=== PATIENT | female | born 2000 | race American Indian/Alaskan Native ===

== ENCOUNTER 2020-10-01 12:46 | Emergency (ER) | payer OTHER ==
[2020-10-01 12:57] VITALS: BP 117/80
--- NOTE | 2020-10-01 13:25 | Emergency Department Report ---
ED ENT HPI - General Chief complaint: Sore Throat Stated complaint: SORE THROAT Time Seen by Provider: 10/01/20 13:19 Source: patient Mode of arrival: Ambulatory Limitations: No Limitations - History of Present Illness Initial comments: This is a 20-year-old female nontoxic well in appearance with no signs of distress presents to the ED with complaint of sore throat. Patient denies any drooling or hoarseness. Patient denies any other symptoms. Denies any fever, chills, headache, nausea, vomiting, chest pain or SOB. Denies any other complaints. MD complaint: sore throat -: days(s) Location: throat Severity: mild Severity scale (0 -10): 8 Quality: aching Consistency: constant Improves with: none Worsens with: swallowing Associated Symptoms: pain with swallowing, sore throat. denies: fever, cough, gum swelling, toothache, tinnitus, hearing loss, discharge from ear, rhinorrhea - Related Data Previous Rx's Medication Instructions Recorded Last Taken Type Acetaminophen [Acetaminophen 8 650 mg PO Q8H PRN #20 tablet.er 10/01/20 Unknown Rx Hour] Amoxicillin/K Clav Tab [Augmentin 1 tab PO Q12HR #20 tab 10/01/20 Unknown Rx 875 mg] Allergies Allergy/AdvReac Type Severity Reaction Status Date / Time No Known Allergies Allergy Unverified 10/01/20 12:56 ED Dental HPI - General Chief complaint: Sore Throat Stated complaint: SORE THROAT Time Seen by Provider: 10/01/20 13:19 Source: patient Mode of arrival: Ambulatory Limitations: No Limitations - Related Data Previous Rx's Medication Instructions Recorded Last Taken Type Acetaminophen [Acetaminophen 8 650 mg PO Q8H PRN #20 tablet.er 10/01/20 Unknown Rx Hour] Amoxicillin/K Clav Tab [Augmentin 1 tab PO Q12HR #20 tab 10/01/20 Unknown Rx 875 mg] Allergies Allergy/AdvReac Type Severity Reaction Status Date / Time No Known Allergies Allergy Unverified 10/01/20 12:56 ED Review of Systems ROS: Stated complaint: SORE THROAT Other details as noted in HPI Comment: All other systems reviewed and negative Constitutional: denies: chills, fever Eyes: denies: eye pain, eye discharge, vision change ENT: throat pain. denies: ear pain Respiratory: denies: cough, shortness of breath, wheezing Cardiovascular: denies: chest pain, palpitations Endocrine: no symptoms reported Gastrointestinal: denies: abdominal pain, nausea, diarrhea Genitourinary: denies: urgency, dysuria, discharge Musculoskeletal: denies: back pain, joint swelling, arthralgia Skin: denies: rash, lesions Neurological: denies: headache, weakness, paresthesias Psychiatric: denies: anxiety, depression Hematological/Lymphatic: denies: easy bleeding, easy bruising ED Past Medical Hx - Past Medical History Previous Medical History?: No - Surgical History Past Surgical History?: No - Medications Home Medications: Home Medications Medication Instructions Recorded Confirmed Last Taken Type Acetaminophen [Acetaminophen 8 650 mg PO Q8H PRN #20 tablet.er 10/01/20 Unknown Rx Hour] Amoxicillin/K Clav Tab [Augmentin 1 tab PO Q12HR #20 tab 10/01/20 Unknown Rx 875 mg] ED Physical Exam - General Limitations: No Limitations General appearance: alert, in no apparent distress - Head Head exam: Present: atraumatic, normocephalic - Eye Eye exam: Present: normal appearance - Expanded ENT Exam Expanded Mouth exam: Present: normal external inspection. Absent: drooling, trismus, muffled voice Teeth exam: Present: normal inspection Throat exam: Positive: tonsillar erythema, tonsillomegaly (2+), tonsillar exudate, other (uvula midline. no abscess or swelling). Negative: R peritonsillar mass, L peritonsillar mass - Neck Neck exam: Present: normal inspection, full ROM, lymphadenopathy (bilateral tonsilar). Absent: tenderness, meningismus - Respiratory Respiratory exam: Present: normal lung sounds bilaterally. Absent: respiratory distress, wheezes, rales, rhonchi, stridor, chest wall tenderness, accessory muscle use, decreased breath sounds, prolonged expiratory - Cardiovascular Cardiovascular Exam: Present: regular rate, normal rhythm, normal heart sounds. Absent: irregular rhythm, systolic murmur, diastolic murmur, rubs, gallop - Extremities Exam Extremities exam: Present: full ROM - Back Exam Back exam: Present: full ROM - Neurological Exam Neurological exam: Present: alert, oriented X3, normal gait - Psychiatric Psychiatric exam: Present: normal affect, normal mood - Skin Skin exam: Present: warm, dry, intact, normal color. Absent: rash ED Course Vital Signs 10/01/20 12:56 Temperature 99.2 F Pulse Rate 110 H Respiratory 16 Rate Blood Pressure 117/80 [Right] O2 Sat by Pulse 98 Oximetry - Reevaluation(s) Reevaluation #1: 10/01/20 13:22 Patient is speaking in full sentences with no signs of distress noted. ED Medical Decision Making - Medical Decision Making Patient was instructed to Follow-up with a primary care doctor in 3-5 days or if symptoms worsen and continue return to emergency room as soon as possible. At time of discharge, the patient does not seem toxic or ill in appearance. No acute signs of distress noted. Patient agrees to discharge treatment plan of care. No further questions noted by the patient. Critical care attestation.: If time is entered above; I have spent that time in minutes in the direct care of this critically ill patient, excluding procedure time. ED Disposition Clinical Impression: Tonsillitis with exudate Disposition: DC-01 TO HOME OR SELFCARE Is pt being admited?: No Does the pt Need Aspirin: No Condition: Stable Instructions: Tonsillitis (ED) Additional Instructions: Follow-up with a primary care doctor in 3-5 days or if symptoms worsen and continue return to emergency room as soon as possible. Prescriptions: Acetaminophen [Acetaminophen 8 Hour] 650 mg PO Q8H PRN #20 tablet.er PRN Reason: pain/fever Amoxicillin/K Clav Tab [Augmentin 875 mg] 1 tab PO Q12HR #20 tab Referrals: PRIMARY CAREMD [Referring] - 3-5 Days RUTH CHIU MD [Staff Physician] - 3-5 Days Forms: Work/School Release Form(ED)
== END 2020-10-01 13:48 | disposition home or self-care (01) ==
LOC: EDBD 12:46 → ED 12:46
DX: J03.90 Acute tonsillitis, unspecified (principal); Z79.899 Other long term (current) drug therapy
CPT/HCPCS: 99281

== ENCOUNTER 2020-10-15 11:06 | Emergency (ER) | payer SELFPAY ==
--- NOTE | 2020-10-15 11:41 | Emergency Department Report ---
Blank Doc - Documentation Documentation: 20-year-old female no sniffing past medical history of's visit who is been on her menstruation for the last 4 days presents emerged department complaining of 1 day of right abdominal cramping to the right upper quadrant and right hypochondriac region. She reports increased urinary urgency decreased urinary production and some discomfort with urination as well. A heavier menstrual flow. Ports no fever, chills, sweats no chest pain palpitation no nausea vomiting On physical semination the pain is to the right upper quadrant area there is no suprapubic tenderness no adnexal pain she has mild discomfort with right CVA percussion This initial assessment/diagnostic orders/clinical plan/treatment(s) is/are subject to change based on patients health status, clinical progression and re- assessment by fellow clinical providers in the ED. Further treatment and workup at subsequent clinical providers discretion. Patient/guardian urged not to elope from the ED as their condition may be serious if not clinically assessed and managed. Initial orders include: We will obtain urinalysis and labs
[2020-10-15 12:56] LABS: Bacteria,Urine 1+ /HPF (Negative); Bilirubin,Urine NEG (Negative); Blood,Urine SM (Negative); Color,Urine Yellow (Yellow); Mucus,Urine FEW /HPF; Urobilinogen,Urine < 2.0 mg/dL (<2.0)
--- NOTE | 2020-10-15 13:42 | Emergency Department Report ---
ED Abdominal Pain HPI - General Chief Complaint: Abdominal Pain Stated Complaint: SEVERE CRAMPS/CHECKING Time Seen by Provider: 10/15/20 13:06 Source: patient Mode of arrival: Ambulatory Limitations: No Limitations - History of Present Illness Initial Comments: This is a pleasant 20-year-old female who presents the emergency department with a chief complaint of right-sided mid abdominal pain and right-sided flank pain with associated urinary frequency and urgency. She states she is currently on her menstrual cycle and is heavier than normal. She rates severity of her pain is a 7 out of 10. She denies any associated fevers, chills, night sweats, headache, dizziness, blurry vision, nausea, vomiting, diarrhea, chest pain, shortness of breath or any other associated symptoms. She denies any known past medical history, medication use or known allergies to medications. - Related Data Previous Rx's Medication Instructions Recorded Last Taken Type Acetaminophen [Acetaminophen 8 650 mg PO Q8H PRN #20 tablet.er 10/01/20 Unknown Rx Hour] Amoxicillin/K Clav Tab [Augmentin 1 tab PO Q12HR #20 tab 10/01/20 Unknown Rx 875 mg] Naproxen [Naprosyn TAB] 500 mg PO BID #20 tablet 10/15/20 Unknown Rx Phenazopyridine [Pyridium] 200 mg PO TID #6 tab 10/15/20 Unknown Rx cephALEXin [Keflex] 500 mg PO Q6HR #40 capsule 10/15/20 Unknown Rx Allergies Allergy/AdvReac Type Severity Reaction Status Date / Time No Known Allergies Allergy Unverified 10/01/20 12:56 ED Review of Systems ROS: Stated complaint: SEVERE CRAMPS/CHECKING Other details as noted in HPI Comment: All other systems reviewed and negative Constitutional: denies: chills, fever Eyes: denies: eye pain, eye discharge, vision change ENT: denies: ear pain, throat pain Respiratory: denies: cough, shortness of breath, wheezing Cardiovascular: denies: chest pain, palpitations Endocrine: no symptoms reported Gastrointestinal: as per HPI, abdominal pain. denies: nausea, diarrhea Genitourinary: denies: urgency, dysuria, discharge Musculoskeletal: back pain. denies: joint swelling, arthralgia Skin: denies: rash, lesions Neurological: denies: headache, weakness, paresthesias Psychiatric: denies: anxiety, depression Hematological/Lymphatic: denies: easy bleeding, easy bruising ED Past Medical Hx - Past Medical History Previous Medical History?: No - Surgical History Past Surgical History?: No - Social History Smoking Status: Never Smoker Substance Use Type: None - Medications Home Medications: Home Medications Medication Instructions Recorded Confirmed Last Taken Type Acetaminophen [Acetaminophen 8 650 mg PO Q8H PRN #20 tablet.er 10/01/20 Unknown Rx Hour] Amoxicillin/K Clav Tab [Augmentin 1 tab PO Q12HR #20 tab 10/01/20 Unknown Rx 875 mg] Naproxen [Naprosyn TAB] 500 mg PO BID #20 tablet 10/15/20 Unknown Rx Phenazopyridine [Pyridium] 200 mg PO TID #6 tab 10/15/20 Unknown Rx cephALEXin [Keflex] 500 mg PO Q6HR #40 capsule 10/15/20 Unknown Rx ED Physical Exam - General Limitations: No Limitations General appearance: alert, in no apparent distress - Head Head exam: Present: atraumatic, normocephalic - Eye Eye exam: Present: normal appearance, PERRL, EOMI Pupils: Present: normal accommodation - ENT ENT exam: Present: normal exam, normal orophraynx, mucous membranes moist, other - Neck Neck exam: Present: normal inspection, full ROM. Absent: tenderness, meni ngismus - Respiratory Respiratory exam: Present: normal lung sounds bilaterally. Absent: respiratory distress, wheezes, rales, rhonchi, stridor - Cardiovascular Cardiovascular Exam: Present: regular rate, normal rhythm, normal heart sounds. Absent: systolic murmur, diastolic murmur, rubs, gallop - GI/Abdominal GI/Abdominal exam: Present: soft, normal bowel sounds, other (Negative McBurney's point tenderness, negative Shahid sign, no rebound or guarding). Absent: distended, tenderness, guarding, rebound, rigid - Extremities Exam Extremities exam: Present: normal inspection, full ROM, normal capillary refill. Absent: tenderness, calf tenderness - Back Exam Back exam: Present: normal inspection, full ROM, CVA tenderness (R) (Mild CVA tenderness on the right). Absent: tenderness, CVA tenderness (L) - Neurological Exam Neurological exam: Present: alert, oriented X3, normal gait - Psychiatric Psychiatric exam: Present: normal affect, normal mood - Skin Skin exam: Present: warm, dry, intact, normal color. Absent: rash ED Course Vital Signs 10/15/20 10/15/20 11:25 13:16 Temperature 99.5 F Pulse Rate 99 H Respiratory 16 18 Rate Blood Pressure 119/73 O2 Sat by Pulse 99 99 Oximetry ED Medical Decision Making - Lab Data Result diagrams: 10/15/20 13:30 10/15/20 13:30 Lab Results 10/15/20 10/15/20 10/15/20 Range/Units 11:50 13:30 13:30 WBC 10.4 (4.5-11.0) K/mm3 RBC 3.72 (3.65-5.03) M/mm3 Hgb 11.8 (10.1-14.3) gm/dl Hct 34.3 (30.3-42.9) % MCV 92 (79-97) fl MCH 32 (28-32) pg MCHC 34 (30-34) % RDW 14.2 (13.2-15.2) % Plt Count 351 (140-440) K/mm3 Lymph % (Auto) 12.6 L (13.4-35.0) % Rice % (Auto) 7.5 H (0.0-7.3) % Eos % (Auto) 1.9 (0.0-4.3) % Baso % (Auto) 0.8 (0.0-1.8) % Lymph # (Auto) 1.3 (1.2-5.4) K/mm3 Rice # (Auto) 0.8 (0.0-0.8) K/mm3 Eos # (Auto) 0.2 (0.0-0.4) K/mm3 Baso # (Auto) 0.1 (0.0-0.1) K/mm3 Seg Neutrophils % 77.2 H (40.0-70.0) % Seg Neutrophils # 8.0 H (1.8-7.7) K/mm3 Sodium 135 L (137-145) mmol/L Potassium 3.6 (3.6-5.0) mmol/L Chloride 100.6 (98-107) mmol/L Carbon Dioxide 26 (22-30) mmol/L Anion Gap 12 mmol/L BUN 8 (7-17) mg/dL Creatinine 0.6 (0.6-1.2) mg/dL Estimated GFR > 60 ml/min BUN/Creatinine Ratio 13 % Glucose 88 (65-100) mg/dL Calcium 9.5 (8.4-10.2) mg/dL Total Bilirubin 0.20 (0.1-1.2) mg/dL AST 13 (5-40) units/L ALT 8 (7-56) units/L Alkaline Phosphatase 53 (35-129) units/L Total Protein 7.6 (6.3-8.2) g/dL Albumin 4.0 (3.9-5) g/dL Albumin/Globulin Ratio 1.1 % HCG, Qual (Negative) Urine Color Yellow (Yellow) Urine Turbidity Slightly-cloudy (Clear) Urine pH 6.0 (5.0-7.0) Ur Specific [place] 1.011 (1.003-1.030) Urine Protein 30 mg/dl (Negative) mg/dL Urine Glucose (UA) Neg (Negative) mg/dL Urine Ketones Neg (Negative) mg/dL Urine Blood Sm (Negative) Urine Nitrite Neg (Negative) Urine Bilirubin Neg (Negative) Urine Urobilinogen < 2.0 (<2.0) mg/dL Ur Leukocyte Esterase Mod (Negative) Urine WBC (Auto) 79.0 H (0.0-6.0) /HPF Urine RBC (Auto) 3.0 (0.0-6.0) /HPF U Epithel Cells (Auto) 1.0 (0-13.0) /HPF Urine Bacteria (Auto) 1+ (Negative) /HPF Urine Mucus Few /HPF 11/16/20 Range/Units 13:30 WBC (4.5-11.0) K/mm3 RBC (3.65-5.03) M/mm3 Hgb (10.1-14.3) gm/dl Hct (30.3-42.9) % MCV (79-97) fl MCH (28-32) pg MCHC (30-34) % RDW (13.2-15.2) % Plt Count (140-440) K/mm3 Lymph % (Auto) (13.4-35.0) % Rice % (Auto) (0.0-7.3) % Eos % (Auto) (0.0-4.3) % Baso % (Auto) (0.0-1.8) % Lymph # (Auto) (1.2-5.4) K/mm3 Rice # (Auto) (0.0-0.8) K/mm3 Eos # (Auto) (0.0-0.4) K/mm3 Baso # (Auto) (0.0-0.1) K/mm3 Seg Neutrophils % (40.0-70.0) % Seg Neutrophils # (1.8-7.7) K/mm3 Sodium (137-145) mmol/L Potassium (3.6-5.0) mmol/L Chloride (98-107) mmol/L Carbon Dioxide (22-30) mmol/L Anion Gap mmol/L BUN (7-17) mg/dL Creatinine (0.6-1.2) mg/dL Estimated GFR ml/min BUN/Creatinine Ratio % Glucose (65-100) mg/dL Calcium (8.4-10.2) mg/dL Total Bilirubin (0.1-1.2) mg/dL AST (5-40) units/L ALT (7-56) units/L Alkaline Phosphatase (35-129) units/L Total Protein (6.3-8.2) g/dL Albumin (3.9-5) g/dL Albumin/Globulin Ratio % HCG, Qual Negative (Negative) Urine Color (Yellow) Urine Turbidity (Clear) Urine pH (5.0-7.0) Ur Specific [place] (1.003-1.030) Urine Protein (Negative) mg/dL Urine Glucose (UA) (Negative) mg/dL Urine Ketones (Negative) mg/dL Urine Blood (Negative) Urine Nitrite (Negative) Urine Bilirubin (Negative) Urine Urobilinogen (<2.0) mg/dL Ur Leukocyte Esterase (Negative) Urine WBC (Auto) (0.0-6.0) /HPF Urine RBC (Auto) (0.0-6.0) /HPF U Epithel Cells (Auto) (0-13.0) /HPF Urine Bacteria (Auto) (Negative) /HPF Urine Mucus /HPF - Medical Decision Making This is a pleasant 20-year-old female presents the emergency department chief complaint of right-sided flank pain and right mid quadrant pain. She had a negative emergency point tenderness no white blood cell count elevation no rebound or guarding making my suspicion for an acute appendicitis very low at this time. She is a low Blackwell score. She had urinary tract infection on exam with some mild CVA tenderness which could indicate an early pyelonephritis although with not meeting SIRS criteria no systemic symptoms I have a low suspicion for a complicated UTI at this time. I will cover the patient with Keflex, Pyridium and recommend anti-inflammatories and outpatient follow-up with her primary care doctor. She was instructed to return to the emerge department any change or worsening symptoms. She verbalized understanding the diagnosis, treatment plan and follow-up instructions and all of her questions were answered. - Differential Diagnosis Cystitis, UTI, pyelonephritis Critical care attestation.: If time is entered above; I have spent that time in minutes in the direct care of this critically ill patient, excluding procedure time. ED Disposition Clinical Impression: Acute pyelonephritis Disposition: TO HOME OR SELFCARE Is pt being admited?: No Condition: Stable Instructions: Abdominal Pain (ED), Pyelonephritis, Adult Prescriptions: cephALEXin [Keflex] 500 mg PO Q6HR #40 capsule Naproxen [Naprosyn TAB] 500 mg PO BID #20 tablet Phenazopyridine [Pyridium] 200 mg PO TID #6 tab Referrals: [facility] [Provider Group] - 3-5 Days Forms: Work/School Release Form(ED) Time of Disposition: 14:55
[2020-10-15 13:46] LABS: Basophils # (Auto) 0.1 K/mm3 (0.0-0.1); Basophils % (Auto) 0.8 % (0.0-1.8); Eosinophils # (Auto) 0.2 K/mm3 (0.0-0.4); Eosinophils % (Auto) 1.9 % (0.0-4.3); Hematocrit 34.3 % (30.3-42.9); Hemoglobin 11.8 gm/dl (10.1-14.3); Lymphocytes # (Auto) 1.3 K/mm3 (1.2-5.4); Lymphocytes % (Auto) 12.6 % (13.4-35.0); Mean Corpuscular HGB Conc 34 % (30-34); Mean Corpuscular Volume 92 fl (79-97); Monocytes # (Auto) 0.8 K/mm3 (0.0-0.8); Monocytes % (Auto) 7.5 % (0.0-7.3); Platelet Count 351 K/mm3 (140-440); Red Blood Count 3.72 M/mm3 (3.65-5.03); Red Cell Distribution Width 14.2 % (13.2-15.2)
[2020-10-15 14:24] LABS: Alanine Aminotransferase 8 units/L (7-56); Blood Urea Nitrogen 8 mg/dL (7-17); Calcium 9.5 mg/dL (8.4-10.2); Hemolysis Index 6
[2020-10-15 14:30] LABS: BUN/Creatinine Ratio 13
[2020-10-15 15:21] VITALS: BP 111/63
== END 2020-10-15 16:20 | disposition home or self-care (01) ==
LOC: ED 11:06
DX: N10 Acute pyelonephritis (principal)
CPT/HCPCS: 36415; 80053; 81001; 84703; 85025; 87086; 87186; 99283

== ENCOUNTER 2020-11-01 10:03 | Emergency (ER) | payer SELFPAY ==
[2020-11-01 10:08] VITALS: BP 111/69
--- NOTE | 2020-11-01 11:12 | Emergency Department Report ---
<SUSAN MIJARES - Last Filed: 11/01/20 13:32> ED Abdominal Pain HPI - General Chief Complaint: Urogenital-Female Stated Complaint: KIDNEY INFECTION Time Seen by Provider: 11/01/20 10:54 Source: patient Mode of arrival: Ambulatory Limitations: No Limitations - History of Present Illness Initial Comments: There is a pleasant 20-year-old female presents to the emergency department for reevaluation. Patient was seen approximately 1 week ago and diagnosed with acute pyelonephritis. At that point she was having pain in the upper abdomen and flank as well as urinary symptoms. She reports the symptoms have since improved but she is now having more pain on both sides of the upper abdomen that had not resolved. She denies any associated nausea, vomiting, diarrhea, fever, chills, night sweats, headache, dizziness, blurry vision, chest pain, shortness of breath, melena, hematochezia, vaginal discharge, dysuria, frequency, urgency. She reports after taking the Keflex and Pyridium her urine turned more yellow and dark and cloudy. She states she is not concerned about an exposure to sexually transmitted infection does not want to be worked up for this. - Related Data Previous Rx's Medication Instructions Recorded Last Taken Type Acetaminophen [Acetaminophen 8 650 mg PO Q8H PRN #20 tablet.er 10/01/20 Unknown Rx Hour] Amoxicillin/K Clav Tab [Augmentin 1 tab PO Q12HR #20 tab 10/01/20 Unknown Rx 875 mg] Naproxen [Naprosyn TAB] 500 mg PO BID #20 tablet 10/15/20 Unknown Rx Phenazopyridine [Pyridium] 200 mg PO TID #6 tab 10/15/20 Unknown Rx cephALEXin [Keflex] 500 mg PO Q6HR #40 capsule 10/15/20 Unknown Rx Dicyclomine [Bentyl] 10 mg PO QID #20 capsule 11/01/20 Unknown Rx Famotidine [Pepcid] 10 mg PO BID #20 tablet 11/01/20 Unknown Rx Allergies Allergy/AdvReac Type Severity Reaction Status Date / Time No Known Allergies Allergy Unverified 10/01/20 12:56 ED Review of Systems Comment: All other systems reviewed and negative Constitutional: denies: chills, fever Eyes: denies: eye pain, eye discharge, vision change ENT: denies: ear pain, throat pain Respiratory: denies: cough, shortness of breath, wheezing Cardiovascular: denies: chest pain, palpitations Endocrine: no symptoms reported Gastrointestinal: as per HPI, abdominal pain. denies: nausea, diarrhea Genitourinary: denies: urgency, dysuria, discharge Musculoskeletal: denies: back pain, joint swelling, arthralgia Skin: denies: rash, lesions Neurological: denies: headache, weakness, paresthesias Psychiatric: denies: anxiety, depression Hematological/Lymphatic: denies: easy bleeding, easy bruising ED Past Medical Hx - Past Medical History Previous Medical History?: No - Surgical History Past Surgical History?: No - Social History Smoking Status: Never Smoker Substance Use Type: Marijuana - Medications Home Medications: Home Medications Medication Instructions Recorded Confirmed Last Taken Type Acetaminophen [Acetaminophen 8 650 mg PO Q8H PRN #20 tablet.er 10/01/20 Unknown Rx Hour] Amoxicillin/K Clav Tab [Augmentin 1 tab PO Q12HR #20 tab 10/01/20 Unknown Rx 875 mg] Naproxen [Naprosyn TAB] 500 mg PO BID #20 tablet 10/15/20 Unknown Rx Phenazopyridine [Pyridium] 200 mg PO TID #6 tab 10/15/20 Unknown Rx cephALEXin [Keflex] 500 mg PO Q6HR #40 capsule 10/15/20 Unknown Rx Dicyclomine [Bentyl] 10 mg PO QID #20 capsule 11/01/20 Unknown Rx Famotidine [Pepcid] 10 mg PO BID #20 tablet 11/01/20 Unknown Rx ED Physical Exam - General Limitations: No Limitations General appearance: alert, in no apparent distress - Head Head exam: Present: atraumatic, normocephalic - Eye Eye exam: Present: normal appearance, PERRL, EOMI Pupils: Present: normal accommodation - ENT ENT exam: Present: normal exam, normal orophraynx, mucous membranes moist - Neck Neck exam: Present: normal inspection, full ROM. Absent: tenderness, meningismus - Respiratory Respiratory exam: Present: normal lung sounds bilaterally. Absent: respiratory distress, wheezes, rales, rhonchi, stridor - Cardiovascular Cardiovascular Exam: Present: regular rate, normal rhythm, normal heart sounds. Absent: systolic murmur, diastolic murmur, rubs, gallop - GI/Abdominal GI/Abdominal exam: Present: soft, normal bowel sounds, other (Negative emergency point tenderness, negative Shahid sign). Absent: distended, tenderness, guarding, rebound, rigid - Extremities Exam Extremities exam: Present: normal inspection, full ROM, normal capillary refill. Absent: tenderness, calf tenderness - Back Exam Back exam: Present: normal inspection, full ROM. Absent: tenderness, CVA tenderness (R), CVA tenderness (L) - Neurological Exam Neurological exam: Present: alert, oriented X3, normal gait - Psychiatric Psychiatric exam: Present: normal affect, normal mood - Skin Skin exam: Present: warm, dry, intact, normal color. Absent: rash ED Medical Decision Making - Medical Decision Making Patient is nontoxic in no acute distress. Vital signs are stable. Her urine was unremarkable and improved from the previous visit. I did recommend to do a pelvic exam due to her symptoms being persistent from the previous visit however she politely declined stating she is not concerned about STD and did not want to do a pelvic exam. I offered to rework her up with blood work and possibly imaging however she also politely declined. At this time the patient's abdominal pain upper abdomen is nonspecific. She had a negative Shahid sign and no nausea or vomiting making acute cholecystitis low on my differential. This also had no epigastric tenderness making my suspicion for pancreatitis unlikely without nausea vomiting or heavy alcohol use. This could be gas pain or pain in the stomach potentially. She is nontoxic and in no distress though I did recommend that she follow-up with a primary care doctor return to the emergency department she develops any changing worsening symptoms. She verbalized understand these instructions and all of her questions were answered. - Differential Diagnosis Gastritis, pancreatitis, cholelithiasis ED Disposition Clinical Impression: Nonspecific abdominal pain Disposition: DC-01 TO HOME OR SELFCARE Is pt being admited?: No Condition: Stable Instructions: Abdominal Pain, Adult, [id number] Prescriptions: Dicyclomine [Bentyl] 10 mg PO QID #20 capsule Famotidine [Pepcid] 10 mg PO BID #20 tablet Referrals: PRIMARY CAREMD [Primary Care Provider] - 3-5 Days [facility] [Provider Group] - 3-5 Days Forms: Work/School Release Form(ED) Time of Disposition: 13:36 <JOE CARMONA - Last Filed: 11/01/20 14:24> ED Abdominal Pain HPI - General PUI?: No ED Review of Systems ROS: Stated complaint: KIDNEY INFECTION Other details as noted in HPI ED Course Vital Signs 11/01/20 10:04 Temperature 97.8 F Pulse Rate 85 Respiratory 14 Rate Blood Pressure 111/69 O2 Sat by Pulse 100 Oximetry Critical care attestation.: If time is entered above; I have spent that time in minutes in the direct care of this critically ill patient, excluding procedure time. ED Disposition Is pt being admited?: No Does the pt Need Aspirin: No
[2020-11-01 13:02] LABS: HCG Qualitative,Urine Negative (Negative)
[2020-11-01 13:20] LABS: Bilirubin,Urine NEG (Negative); Blood,Urine NEG (Negative); Color,Urine Yellow (Yellow); Mucus,Urine FEW /HPF; Protein,Urine <15 mg/dL mg/dL (Negative); Urobilinogen,Urine < 2.0 mg/dL (<2.0)
== END 2020-11-01 13:51 | disposition home or self-care (01) ==
LOC: ED 10:03
DX: R10.10 Upper abdominal pain, unspecified (principal); F12.10 Cannabis abuse, uncomplicated; Z79.899 Other long term (current) drug therapy
CPT/HCPCS: 81001; 81025; 99283

== ENCOUNTER 2021-09-03 13:37 | Emergency (ER) | payer SELFPAY ==
--- NOTE | 2021-09-03 13:48 | Emergency Department Report ---
Minor Respiratory - HPI Chief Complaint: Sore Throat Stated Complaint: SORETHROAT Time Seen by Provider: 09/03/21 13:45 Minor Respiratory: Yes Sore Throat, Yes Able to Tolerate Fluids, No Rhinorrhea, No Ear Pain, No Cough, No Sick Contacts, No Hemoptysis, No Chest Pain, No Shortness of Breath, No Fever Other History: 21 YO AA COMES TO ER CO SORE THROAT. SHE HAS TONSILITIS OFTEN- AND THIS IS HER USUAL PAIN. SHE HAS NOT SEEN ENT FOR REMOVAL. EXUDATE BILTERAL. NO FEVER OR CHILLS. TAKING PO AND CONTROLLING SECRETIONS ED Review of Systems ROS: Stated complaint: SORETHROAT Other details as noted in HPI Comment: All other systems reviewed and negative ED Past Medical Hx - Past Medical History Previous Medical History?: Yes Additional medical history: recurrent tonsilitis - Surgical History Past Surgical History?: Yes - Family History Family history: no significant - Social History Smoking Status: Never Smoker Substance Use Type: Marijuana - Medications Home Medications: Home Medications Medication Instructions Recorded Confirmed Last Taken Type Amoxicillin [Trimox CAP] 500 mg PO BID #20 capsule 09/03/21 Unknown Rx Minor Respiratory Exam - Exam General: Vital signs noted. No distress. Alert and acting appropriately. HEENT: Yes Pharyngeal Erythema, Yes Pharyngeal Exudates, Yes Moist Mucous Membranes, No Rhinorrhea, No Conjuctival Injection, No Frontal Tenderness, No Maxillary Tenderness Ear: Neither TM Bulge, Neither TM Erythema, Neither EAC Pain, Neither EAC Discharge Neck: Yes Supple, No Adenopathy Lungs: Yes Good Air Exchange, No Wheezes, No Ronchi, No Stridor, No Cough, No Labored Respirations, No Retractions, No Use of Accessory Muscles, No Other Abnormal Lung Sounds Heart: Yes Regular, No Murmur Abdomen: Yes Normal Bowel Sounds, No Tenderness, No Peritoneal Signs Skin: No Rash, No Edema Neurologic: Alert and oriented, no deficits. Musculoskeletal: Unremarkable. ED Medical Decision Making - Medical Decision Making normal as documented manually by RN taking PO without difficulty dc home with dc plan of care including meds, diet, activity and followup. She verbalizes understanding of discharge plan of care including follow up with ENT. - Differential Diagnosis tonsilitis/exudative pharyngitis Critical care attestation.: If time is entered above; I have spent that time in minutes in the direct care of this critically ill patient, excluding procedure time. ED Disposition Clinical Impression: Exudative pharyngitis Disposition: 01 HOME / SELF CARE / HOMELESS Is pt being admited?: No Does the pt Need Aspirin: No Condition: Stable Instructions: Pharyngitis Additional Instructions: stay well hydrated motrin or tylenol for pain med as ordered today follow up with ent as we discussed referral below Prescriptions: Amoxicillin [Trimox CAP] 500 mg PO BID #20 capsule Referrals: ROLO MARSH MD [Staff Physician] - 3-5 Days Forms: Work/School Release Form(ED) Time of Disposition: 13:46
== END 2021-09-03 14:04 | disposition home or self-care (01) ==
LOC: ED 13:37
DX: J02.9 Acute pharyngitis, unspecified (principal); F12.90 Cannabis use, unspecified, uncomplicated; Z79.899 Other long term (current) drug therapy
CPT/HCPCS: 99281

== ENCOUNTER 2022-04-03 16:46 | Emergency (ER) | payer OTHER ==
[2022-04-03] MEDS ORDERED: oxyCODONE /ACETAMINOPHEN 5-325MG TAB PO ONE (22:57)
[2022-04-03] MEDS ORDERED: IBUPROFEN 600 MG TAB PO ONE (22:57)
[2022-04-03] MEDS ORDERED: LIDOCAINE (1%) 10 MG/1 ML VIAL 20 ML MDV INFILTRATI ONE (22:57)
[2022-04-04] MEDS ORDERED: SULFAMETHOXAZOLE/TRIMETHOPRIM 800/160MG DS TAB PO ONE (01:44)
--- NOTE | 2022-04-04 01:50 | Emergency Department Report ---
ED General Adult HPI - General Chief complaint: Skin/Abscess/Foreign Body Stated complaint: CYST Source: patient Mode of arrival: Ambulatory Limitations: No Limitations - History of Present Illness Initial comments: Patient is a 21-year-old -[place] female with no past medical history presents to the ED with complaint of acute onset persistent painful swollen mild erythematous maculopapular rash on right inguinal area for the last 1 week. Patient states that she has been taking [id number] medications with no relief. Patient denies fever, chills, nausea, vomiting, dizziness, syncope, numbness and tingling or weakness of right leg, traumatic injury or fall, low back pain, dysuria, urinary frequency and urgency. MD Complaint: right inguinal painful swollen rash -: Sudden, week(s) (1) Location: pelvis (right inguinal area) Radiation: non-radiation Severity scale (0 -10): 8 Quality: aching, sharp Consistency: constant Improves with: none Worsens with: movement Associated Symptoms: denies other symptoms, rash (Swollen, painful right inguinal maculopapular erythematous rash). denies: confusion, chest pain, cough, diaphoresis, fever/chills, headaches, loss of appetite, malaise, nausea/vomiting, shortness of breath, syncope, weakness - Related Data Previous Rx's Medication Instructions Recorded Last Taken Type Amoxicillin [Trimox CAP] 500 mg PO BID #20 capsule 09/03/21 Unknown Rx Acetaminophen/Codeine [Tylenol 1 tab PO Q6H PRN #12 tab 04/04/22 Unknown Rx /Codeine # 3 tab] Clindamycin [Clindamycin CAP] 300 mg PO Q8H #30 cap 04/04/22 Unknown Rx Fluconazole [Diflucan TAB] 200 mg PO QDAY #1 tablet 04/04/22 Unknown Rx Ibuprofen [Motrin] 600 mg PO Q8H PRN #30 tablet 04/04/22 Unknown Rx Sulfamethoxazole/Trimethoprim 1 each PO Q12H #20 tab 04/04/22 Unknown Rx [Bactrim DS TAB] Allergies Allergy/AdvReac Type Severity Reaction Status Date / Time No Known Allergies Allergy Verified 09/03/21 13:39 ED Review of Systems ROS: Stated complaint: CYST Other details as noted in HPI Constitutional: denies: chills, fever Eyes: denies: eye pain, eye discharge, vision change ENT: denies: ear pain, throat pain Respiratory: denies: cough, shortness of breath, wheezing Cardiovascular: denies: chest pain, palpitations Endocrine: no symptoms reported Gastrointestinal: denies: abdominal pain, nausea, diarrhea Genitourinary: denies: urgency, dysuria, discharge Musculoskeletal: denies: back pain, joint swelling, arthralgia Skin: rash (Swollen, mildly erythematous maculopapular painful rash on right inguinal area), change in color. denies: lesions Neurological: denies: headache, weakness, paresthesias Psychiatric: denies: anxiety, depression Hematological/Lymphatic: denies: easy bleeding, easy bruising ED Past Medical Hx - Past Medical History Additional medical history: recurrent tonsilitis - Social History Smoking Status: Never Smoker Substance Use Type: Marijuana - Medications Home Medications: Home Medications Medication Instructions Recorded Confirmed Last Taken Type Amoxicillin [Trimox CAP] 500 mg PO BID #20 capsule 09/03/21 Unknown Rx Acetaminophen/Codeine [Tylenol 1 tab PO Q6H PRN #12 tab 04/04/22 Unknown Rx /Codeine # 3 tab] Clindamycin [Clindamycin CAP] 300 mg PO Q8H #30 cap 04/04/22 Unknown Rx Fluconazole [Diflucan TAB] 200 mg PO QDAY #1 tablet 04/04/22 Unknown Rx Ibuprofen [Motrin] 600 mg PO Q8H PRN #30 tablet 04/04/22 Unknown Rx Sulfamethoxazole/Trimethoprim 1 each PO Q12H #20 tab 04/04/22 Unknown Rx [Bactrim DS TAB] ED Physical Exam - General Limitations: No Limitations General appearance: alert, in no apparent distress - Head Head exam: Present: atraumatic, normocephalic, normal inspection - Eye Eye exam: Present: normal appearance, PERRL, EOMI Pupils: Present: normal accommodation - ENT ENT exam: Present: normal exam, normal orophraynx, mucous membranes moist, TM's normal bilaterally, normal external ear exam - Neck Neck exam: Present: normal inspection, full ROM. Absent: tenderness - Respiratory Respiratory exam: Present: normal lung sounds bilaterally. Absent: respiratory distress, wheezes, rales, rhonchi, chest wall tenderness, accessory muscle use, decreased breath sounds, prolonged expiratory, other - Cardiovascular Cardiovascular Exam: Present: regular rate, normal rhythm, normal heart sounds. Absent: systolic murmur, diastolic murmur, rubs, gallop - GI/Abdominal GI/Abdominal exam: Present: soft, normal bowel sounds. Absent: tenderness, guarding, rebound, hyperactive bowel sounds, hypoactive bowel sounds, organomegaly, mass, bruit - Extremities Exam Extremities exam: Present: normal inspection, full ROM, normal capillary refill. Absent: tenderness, pedal edema, joint swelling, calf tenderness - Back Exam Back exam: Present: normal inspection, full ROM. Absent: tenderness, CVA tenderness (R), CVA tenderness (L), muscle spasm, paraspinal tenderness, vertebral tenderness - Neurological Exam Neurological exam: Present: alert, oriented X3, CN II-XII intact, normal gait, reflexes normal - Psychiatric Psychiatric exam: Present: normal affect, normal mood - Skin Skin exam: Present: warm, dry, intact, normal color, rash (Swollen, tender mild erythematous maculopapular fluctuant rash on right inguinal area), erythema. Absent: urticaria, vesicles, petechiae, other ED Course Vital Signs 04/03/22 04/03/22 17:12 17:15 Temperature 99.6 F Pulse Rate 95 H Respiratory 16 Rate Blood Pressure 110/77 O2 Sat by Pulse 99 Oximetry - I & D Right Medial Hip Type of Procedure: Simple Site: Medial right inguinal area Blade Size: 11 I & D Procedure: betadine prep, sterile drapes applied, sterile dressing applied, gauze wick placed Progress: The right inguinal area swollen fluctuant rash was cleaned with normal saline and Betadine solution. Lidocaine 1% solution was infiltrated around the area for local anesthesia. When anesthesia was fully achieved, the wound was incised with a scalpel blade #11, and thick purulent bloody discharge drained from the wound. The wound was extensively debrided with normal saline, and floccul ation's were broken with hemostat. The wound was then packed with iodoform quarter inch gauze and dressed with 4 x 4 gauze and Tegaderm. Patient tolerated procedure well. On reevaluation, patient's pain is well controlled medication. Patient will discharge home on medications for pain as well as antibiotics and was advised to return to the ED in 2 days for wound recheck or packing removal. Patient was otherwise advised to follow-up with her primary care physician in 7 to 10 days for reevaluation or return to the ED immediately if symptoms get worse. ED Medical Decision Making - Medical Decision Making This is a 21-year-old -[place] female with no past medical history presents to the ED with complaint of acute onset persistent painful swollen mild erythematous maculopapular rash on right inguinal area for the last 1 week. Patient states that she has been taking [id number] medications with no relief. In the ED, patient is alert and oriented x3 and is not in any distress. Patient is hemodynamically stable. Patient was treated for pain in the ED and also received initial oral antibiotics. The right inguinal area swollen fluctuant rash was cleaned with normal saline and Betadine solution. Lidocaine 1% solution was infiltrated around the area for local anesthesia. When anesthesia was fully achieved, the wound was incised with a scalpel blade #11, and thick purulent bloody discharge drained from the wound. The wound was extensively debrided with normal saline, and flocculation's were broken with hemostat. The wound was then packed with iodoform quarter inch gauze and dressed with 4 x 4 gauze and Tegaderm. Patient tolerated procedure well. On reevaluation, patient's pain is well controlled medication. Patient will discharge home on medications for pain as well as antibiotics and was advised to return to the ED in 2 days for wound recheck or packing removal. Patient was otherwise advised to follow-up with her primary care physician in 7 to 10 days for reevaluation or return to the ED immediately if symptoms get worse. - Differential Diagnosis Folliculitis; cellulitis; cutaneous abscess Critical care attestation.: If time is entered above; I have spent that time in minutes in the direct care of this critically ill patient, excluding procedure time. ED Disposition Clinical Impression: Cutaneous abscess of groin, Abscess or cellulitis of groin, Acute folliculitis Disposition: HOME / SELF CARE / HOMELESS Is pt being admited?: No Does the pt Need Aspirin: No Condition: Stable Instructions: Skin Abscess, [id number], Cellulitis, Adult, [id number], Folliculitis Additional Instructions: Take medication with food, drink plenty of fluids and follow-up with your primary care physician in 7 to 10 days for reevaluation. Return to the ED in 2 days for wound recheck and packing removal. Otherwise return to the ED immediately if symptoms get worse. Prescriptions: Sulfamethoxazole/Trimethoprim [Bactrim DS TAB] 1 each PO Q12H #20 tab Clindamycin [Clindamycin CAP] 300 mg PO Q8H #30 cap Fluconazole [Diflucan TAB] 200 mg PO QDAY #1 tablet Ibuprofen [Motrin] 600 mg PO Q8H PRN #30 tablet PRN Reason: Pain Acetaminophen/Codeine [Tylenol /Codeine # 3 tab] 1 tab PO Q6H PRN #12 tab PRN Reason: Pain , Severe (7-10) Referrals: [facility] [Provider Group] - 7-10 days Forms: Work/School Release Form(ED) Time of Disposition: 01:52 Print Language: KHMER
[2022-04-04 02:29] VITALS: BP 116/82
== END 2022-04-04 02:14 | disposition home or self-care (01) ==
LOC: ED 16:46
DX: L02.214 Cutaneous abscess of groin (principal); L66.2 Folliculitis decalvans; F12.90 Cannabis use, unspecified, uncomplicated
CPT/HCPCS: 99282

== ENCOUNTER 2022-04-06 17:18 | Emergency (ER) | payer OTHER ==
[2022-04-06] MEDS ORDERED: IBUPROFEN 600 MG TAB PO ONE (21:38)
--- NOTE | 2022-04-06 21:38 | Emergency Department Report ---
ED General Adult HPI - General Chief complaint: Laceration/Recheck/Suture Stated complaint: REMOVE GAUZE PACKING Source: patient Mode of arrival: Ambulatory Limitations: No Limitations - History of Present Illness Initial comments: Patient is a 21-year-old -[place] female with no past medical history presents to the ED for wound recheck of a recently incised and drained right inguinal abscess 2 days ago. Patient states that she has been taking antibiotic as previously prescribed although the patient states that he has not been able to pick her pain medication because the pharmacy ran out of the medication. Patient however denies fever, chills, nausea and vomiting, dizziness, syncope, numbness and tingling or weakness of lower extremities bilaterally or low back pain or abdominal pain. MD Complaint: Right inguinal abscess wound recheck and packing removal -: Sudden, days(s) (2) Location: pelvis (Right inguinal area), lower extremity (Right inguinal area) Radiation: non-radiation Severity scale (0 -10): 4 Quality: aching, sharp, constant Consistency: constant Improves with: none Worsens with: movement Associated Symptoms: denies other symptoms, rash (Mildly erythematous open wound which was recently opened and drained with packing material in place). denies: confusion, chest pain, cough, headaches, loss of appetite, malaise, shortness of breath, syncope, weakness Treatments Prior to Arrival: none - Related Data Previous Rx's Medication Instructions Recorded Last Taken Type Amoxicillin [Trimox CAP] 500 mg PO BID #20 capsule 09/03/21 Unknown Rx Acetaminophen/Codeine [Tylenol 1 tab PO Q6H PRN #12 tab 04/04/22 Unknown Rx /Codeine # 3 tab] Clindamycin [Clindamycin CAP] 300 mg PO Q8H #30 cap 04/04/22 Unknown Rx Fluconazole [Diflucan TAB] 200 mg PO QDAY #1 tablet 04/04/22 Unknown Rx Ibuprofen [Motrin] 600 mg PO Q8H PRN #30 tablet 04/04/22 Unknown Rx Sulfamethoxazole/Trimethoprim 1 each PO Q12H #20 tab 04/04/22 Unknown Rx [Bactrim DS TAB] Ibuprofen [Motrin] 800 mg PO Q8HR PRN #30 tablet 04/06/22 Unknown Rx Allergies Allergy/AdvReac Type Severity Reaction Status Date / Time No Known Allergies Allergy Verified 09/03/21 13:39 ED Review of Systems ROS: Stated complaint: REMOVE GAUZE PACKING Other details as noted in HPI Constitutional: denies: chills, fever Eyes: denies: eye pain, eye discharge, vision change ENT: denies: ear pain, throat pain Respiratory: denies: cough, shortness of breath, wheezing Cardiovascular: denies: chest pain, palpitations Endocrine: no symptoms reported Gastrointestinal: denies: abdominal pain, nausea, vomiting, diarrhea Genitourinary: denies: urgency, dysuria, discharge Musculoskeletal: denies: back pain, joint swelling, arthralgia Skin: rash (Mild erythematous open abscess wound on right inguinal area with moderate tenderness and packing in place), change in color. denies: lesions Neurological: denies: headache, weakness, paresthesias Psychiatric: denies: anxiety, depression Hematological/Lymphatic: denies: easy bleeding, easy bruising ED Past Medical Hx - Past Medical History Previous Medical History?: Yes Additional medical history: recurrent tonsilitis - Surgical History Past Surgical History?: No - Social History Smoking Status: Never Smoker Substance Use Type: Marijuana - Medications Home Medications: Home Medications Medication Instructions Recorded Confirmed Last Taken Type Amoxicillin [Trimox CAP] 500 mg PO BID #20 capsule 09/03/21 Unknown Rx Acetaminophen/Codeine [Tylenol 1 tab PO Q6H PRN #12 tab 04/04/22 Unknown Rx /Codeine # 3 tab] Clindamycin [Clindamycin CAP] 300 mg PO Q8H #30 cap 04/04/22 Unknown Rx Fluconazole [Diflucan TAB] 200 mg PO QDAY #1 tablet 04/04/22 Unknown Rx Ibuprofen [Motrin] 600 mg PO Q8H PRN #30 tablet 04/04/22 Unknown Rx Sulfamethoxazole/Trimethoprim 1 each PO Q12H #20 tab 04/04/22 Unknown Rx [Bactrim DS TAB] Ibuprofen [Motrin] 800 mg PO Q8HR PRN #30 tablet 04/06/22 Unknown Rx ED Physical Exam - General Limitations: No Limitations General appearance: alert, in no apparent distress - Head Head exam: Present: atraumatic, normocephalic, normal inspection - Eye Eye exam: Present: normal appearance, PERRL, EOMI Pupils: Present: normal accommodation - ENT ENT exam: Present: normal exam, normal orophraynx, mucous membranes moist, TM's normal bilaterally, normal external ear exam - Neck Neck exam: Present: normal inspection, full ROM. Absent: tenderness - Respiratory Respiratory exam: Present: normal lung sounds bilaterally. Absent: respiratory distress, wheezes, rales, rhonchi, stridor, chest wall tenderness, accessory muscle use, decreased breath sounds, prolonged expiratory - Cardiovascular Cardiovascular Exam: Present: regular rate, normal rhythm, normal heart sounds. Absent: systolic murmur, diastolic murmur, rubs, gallop - GI/Abdominal GI/Abdominal exam: Present: soft, normal bowel sounds. Absent: tenderness, guarding, rebound, hyperactive bowel sounds, hypoactive bowel sounds - Extremities Exam Extremities exam: Present: normal inspection, full ROM, normal capillary refill. Absent: tenderness - Back Exam Back exam: Present: normal inspection, full ROM. Absent: tenderness, CVA tenderness (R), CVA tenderness (L), muscle spasm, paraspinal tenderness, vertebral tenderness - Neurological Exam Neurological exam: Present: alert, oriented X3, CN II-XII intact, normal gait, reflexes normal - Psychiatric Psychiatric exam: Present: normal affect, normal mood - Skin Skin exam: Present: warm, dry, intact, normal color, rash (Open right inguinal abscess wound with packing material in place.) ED Course Vital Signs 04/06/22 17:30 Temperature 98.6 F Pulse Rate 98 H Respiratory 20 Rate Blood Pressure 102/61 [Right] O2 Sat by Pulse 98 Oximetry ED Medical Decision Making - Medical Decision Making This is a 21-year-old -[place] female with no past medical history presents to the ED for wound recheck of a recently incised and drained right inguinal abscess 2 days ago. Patient states that she has been taking antibiotic as previously prescribed although the patient states that he has not been able to pick her pain medication because the pharmacy ran out of the medication. In the ED, patient is alert and oriented x3 and is not in any distress. Patient was treated in the ED for pain. The previously packed right inguinal abscess wound was cleaned extensively with normal saline and the packing material removed. Patient tolerated the procedure well. The wound was then dressed appropriately with 4 x 4 gauze and Tegaderm and the patient was discharged home and advised to continue taking the previously prescribed medications. Patient was advised return to the ED immediately if symptoms get worse. Patient was otherwise advised to follow-up with her primary care physician in 7 to 10 days for reevaluation. - Differential Diagnosis Wound care; abscess wound check; cellulitis; folliculitis Critical care attestation.: If time is entered above; I have spent that time in minutes in the direct care of this critically ill patient, excluding procedure time. ED Disposition Clinical Impression: Encounter for wound re-check, Abscess packing removal, Cellulitis of right groin Disposition: HOME / SELF CARE / HOMELESS Is pt being admited?: No Does the pt Need Aspirin: No Condition: Stable Instructions: Cellulitis, Adult, [id number], Wound Closure Removal, Care After, Wound Care, Adult Additional Instructions: Continue taking the previously prescribed medications. Follow-up with your primary care physician in 7 to 10 days for reevaluation. Return to the ED immediately if symptoms get worse Prescriptions: Ibuprofen [Motrin] 800 mg PO Q8HR PRN #30 tablet PRN Reason: Pain , Severe (7-10) Referrals: [facility] [Provider Group] - 3-5 Days Time of Disposition: 21:45 Print Language: SINHALA
[2022-04-06] MEDS ORDERED: HYDROcodone/ACETAMINOPHEN 5-325 MG TAB PO ONE (21:42)
[2022-04-06] MEDS ORDERED: ONDANSETRON 4 MG ODT TAB PO ONE (21:42)
[2022-04-06 22:01] VITALS: BP 102/60
== END 2022-04-06 22:00 | disposition home or self-care (01) ==
LOC: ED 17:18
DX: L03.314 Cellulitis of groin (principal); Z48.01 Encounter for change or removal of surgical wound dressing
CPT/HCPCS: 99282; J3490; Q0162